=== PATIENT | female | born 1985 | race Caucasian/White ===

== ENCOUNTER → 2017-06-19 | Outpatient (REF) ==
[~2017-06-19] MED LIST: MOTRIN 600600 MG/TAB PO; PERCOCET 325 MG1 TA2 PO; PRENATAL1 TA1 PO
== END ==
LOC: WSOH 08:29
DX: Z02.89 Encounter for other administrative examinations (principal)

== ENCOUNTER → 2017-06-28 | Outpatient (REF) | LOC: WSOH 09:45 | DX: Z11.1 Encounter for screening for respiratory tuberculosis (principal) ==

== ENCOUNTER → 2017-07-25 | Outpatient (CLI) | payer OTHER ==
[2017-07-26 01:01] LABS: HEPATITIS B SURFACE AB-QL Negative (())
== END ==
LOC: COL.LAB 14:35
PROVIDERS: Family Medicine
DX: B19.10 Unspecified viral hepatitis B without hepatic coma (principal)

== ENCOUNTER 2017-12-12 19:05 | Emergency (ER) | payer OTHER ==
[~2017-12-12] VITALS: Ht 157.5 cm; Wt 72.7 kg
[2017-12-12 19:14] VITALS: BP 121/76; PULSE 88; TEMP 98.9
[2017-12-12] MEDS ORDERED: WELLBUTRIN XL300 M1 PO (19:18)
== END 2017-12-12 20:27 | disposition home or self-care (01) ==
LOC: COL.ER 19:05
DX: K08.89 Other specified disorders of teeth and supporting structures (principal)
CPT/HCPCS: J1885

== ENCOUNTER 2020-06-20 09:59 | Day surgery (SDC) | payer OTHER ==
[~2020-06-20] VITALS: Ht 157.5 cm; Wt 86.6 kg
[~2020-06-20 09:59] MED LIST changes: +WELLBUTRIN XL300 M1 PO
[2020-06-20 10:18] VITALS: BP 122/82; PULSE 93; TEMP 98.2
[2020-06-20] MEDS ORDERED: ZYRTEC ALLERGY10 MG PO (10:28)
--- NOTE | 2020-06-20 10:30 | NUR ---
TO BAY 3 AT 1000 CALL LIGHT IN REACH AND AT BEDSIDE
[2020-06-20 11:40] VITALS: BP 104/71; PULSE 93; TEMP 97.4
--- NOTE | 2020-06-20 11:40 | NUR ---
Patient arrives to [facility] via cart, accompanied by Endo RN Amarilis. She is alert, oriented. She ambulates to the chair in her room with standby assist and steady gait. Monitoring is applied - VSS on room air. She denies pain or nausea. She is offered and receives water and toast. Her spouse is brought to the bedside.
[2020-06-20 11:55] VITALS: BP 113/80; PULSE 84
--- NOTE | 2020-06-20 11:55 | NUR ---
Dr. Flores is at the bedside and speaks with the patient and her spouse.
[2020-06-20 12:10] VITALS: BP 100/73; PULSE 76
--- NOTE | 2020-06-20 12:10 | NUR ---
VSS on room air. Denies pain, nausea, or need. Ate/drank and tolerated PO well.
--- NOTE | 2020-06-20 12:28 | NUR ---
Patient has met discharge criteria. Discharge instructions are discussed. She denies questions and verbalizes understanding. PIV is removed with catheter intact and hemostasis achieved. She changes to her clothing independently. She is escorted to the exit via wheelchair by staff and discharged to home with ride in private vehicle at 1228.
== END 2020-06-20 12:28 | disposition home or self-care (01) ==
LOC: SDCO 09:59
DX: K21.0 Gastro-esophageal reflux disease with esophagitis (principal); K29.50 Unspecified chronic gastritis without bleeding; K44.9 Diaphragmatic hernia without obstruction or gangrene; J45.909 Unspecified asthma, uncomplicated; E05.00 Thyrotoxicosis with diffuse goiter without thyrotoxic crisis or storm; Z20.828 Contact with and (suspected) exposure to other viral communicable diseases
CPT/HCPCS: J2704; J7030